=== PATIENT | female | born 1970 | race Caucasian/White ===

== ENCOUNTER 2020-06-11 11:05 | Day surgery (SDC) | payer OTHER ==
[~2020-06-11] VITALS: Ht 166.4 cm; Wt 131.1 kg
[2020-06-11] MEDS ORDERED: LACTATED RINGERS 1,000 ML IV SCH (11:39)
[2020-06-11] MEDS ORDERED: CHLORHEXIDINE 15 ML UDC MM STA (11:39)
[2020-06-11 11:41] VITALS: BP 123/75
[2020-06-11] MEDS ORDERED: SIME125C67 PO (11:49)
[2020-06-11] MEDS ORDERED: OMEP-110 PO (11:49)
[2020-06-11] MEDS ORDERED: MULT-826 PO (11:49)
[2020-06-11] MEDS ORDERED: FEXO180T72 PO (11:49)
[2020-06-11] MEDS ORDERED: GLUC-149 PO (11:49)
[2020-06-11] MEDS ORDERED: L. A1CAP3 PO (11:49)
[2020-06-11] MEDS ORDERED: PLEASE ENTER HEIGHT AND WEIGHT MC SCH (12:00)
[2020-06-11 12:31] LABS: HCG UR SG 1.015 (1.003-1.030)
[2020-06-11] MEDS ORDERED: PROPOFOL 50 ML ONE (12:45)
== END 2020-06-11 14:40 | disposition home or self-care (01) ==
LOC: OUT 11:05
PROVIDERS: ATTEND Internal Medicine Gastroenterology
DX: Z12.11 Encounter for screening for malignant neoplasm of colon (principal); K21.9 Gastro-esophageal reflux disease without esophagitis; K29.50 Unspecified chronic gastritis without bleeding; D12.2 Benign neoplasm of ascending colon; D12.5 Benign neoplasm of sigmoid colon; D12.3 Benign neoplasm of transverse colon; K64.4 Residual hemorrhoidal skin tags; G47.30 Sleep apnea, unspecified; E66.01 Morbid (severe) obesity due to excess calories; Z20.828 Contact with and (suspected) exposure to other viral communicable diseases; Z79.1 Long term (current) use of non-steroidal anti-inflammatories (NSAID); Z79.899 Other long term (current) drug therapy; Z98.84 Bariatric surgery status
CPT/HCPCS: 43239; 45385; 81025; 87635; 88305; J2704; J7120

== ENCOUNTER → 2021-01-31 | Outpatient (CLI) | payer OTHER ==
[~2021-01-31] MED LIST: FEXO180T72 PO; GLUC-149 PO; L. A1CAP3 PO; MULT-826 PO; OMEP-110 PO; SIME125C67 PO; TRAM50TA2 PO; folate PO
[2021-01-31 16:20] LABS: ALANINE AMINOTRANSFERASE 20 U/L (12-78); ALBUMIN 3.9 g/dL (3.4-5.0); ANION GAP 5 mmol/L (5-15); CHLORIDE 107 mmol/L (98-107); CREATININE 0.79 mg/dL (0.55-1.02)
[2021-01-31 16:22] LABS: ALKALINE PHOSPHATASE 79 U/L (45-117); BASOPHILS % (AUTO) 1 % (0-1); BILIRUBIN,TOTAL 0.4 mg/dL (0.2-1.0); EOSINOPHILS % (AUTO) 6 % (1-7); LYMPHOCYTES % (AUTO) 36 % (22-44); MEAN CORPUSCULAR HEMOGLOBIN 28.3 pg (27.0-34.8); MEAN CORPUSCULAR HGB CONC 32.7 g/dL (32.4-35.8); MEAN PLATELET VOLUME 10.6 fL (7.4-10.4); MONOCYTES % (AUTO) 6 % (2-9); NEUTROPHILS % (AUTO) 52 % (42-75); PLATELET COUNT 183 x10^3/uL (130-400); RED CELL DISTRIBUTION WIDTH 15.7 % (9.6-15.2); TOTAL PROTEIN 7.1 g/dL (6.4-8.2)
== END | disposition home or self-care (01) ==
LOC: STAR 15:12
PROVIDERS: ATTEND Thoracic Surgery (Cardiothoracic Vascular Surgery)
DX: Z01.818 Encounter for other preprocedural examination (principal); K44.9 Diaphragmatic hernia without obstruction or gangrene; I49.3 Ventricular premature depolarization
CPT/HCPCS: 36415; 71046; 80053; 85025; 93005

== ENCOUNTER 2021-02-07 10:47 | Inpatient (IN) | payer OTHER ==
[~2021-02-07] VITALS: Ht 165.1 cm; Wt 112.6 kg
[~2021-02-07 10:47] MED LIST changes: +HYDR15SO3 PO
--- NOTE | 2021-02-07 10:58 | NUR ---
ATTEMPT TO CALL PT FROM LOBBY TO TRIAGE. PT NIL X 1
--- NOTE | 2021-02-07 11:37 | NUR ---
FIRST CONTACT: HIATAL [facility]ERNIA REPAIR AND GASTRIC BIPASS REVISION 2 DAYS AGO, UNABLE TO TOLERATE ANY PO INTAKE SINCE SURGERY. EPIGASTRIC PRESSURE NOTED PRIOR TO EACH EMESIS. PT TO ROOM WITH STEADY GAIT. ATTACHED TO MONITORS AND POSTIONED TO COMFORT. VSS. DR. MACK TO BEDSIDE FOR EVALUATION.
--- NOTE | 2021-02-07 12:13 | NUR ---
PT RESTING IN BED. VSS. PATEL. AT BEDSIDE
--- NOTE | 2021-02-07 12:23 | NUR ---
Pt to esophogram
--- NOTE | 2021-02-07 13:41 | NUR ---
PT RESTING IN BED. VSS. NADN. UP FOR RECHECK.
--- NOTE | 2021-02-07 14:21 | NUR ---
PT UP TO BATHROOM WITH STEADY GAIT. RYLAND. JORGE.
[2021-02-07] MEDS ORDERED: LORazepam 2 MG/ML, 1ML IVPush PRN (15:00)
[2021-02-07] MEDS ORDERED: SODIUM CHLORIDE FLUSH 10ML SYR IVF PRN (15:00)
[2021-02-07] MEDS ORDERED: HYDROmorphone 2 MG/ML, 1ML IVPush PRN (15:00)
[2021-02-07] MEDS ORDERED: PANTOPRAZOLE 40 MG IV ONE (15:05)
--- NOTE | 2021-02-07 15:06 | NUR ---
YELLOW MED REQ SLIP SEND DOWN FOR IVF.
[2021-02-07] MEDS: PANTOPRAZOLE 40 MG IV IVPush SCH (15:13)
--- NOTE | 2021-02-07 15:13 | NUR ---
PT MEDICATED PER EMAR. VSS. JBN.
--- NOTE | 2021-02-07 15:54 | NUR ---
REPORT GIVEN TO MI CONNER
[2021-02-07 17:19] VITALS: BP 113/73
[2021-02-07 20:17] VITALS: BP 106/65
[2021-02-07] MEDS: POTASSIUM CHLORIDE 10 MEQ in LACTATED RINGERS 1,000 ML IV SCH (20:24)
[2021-02-07] MEDS: KETOROLAC 30 MG/1 ML IVPush PRN (21:01)
[2021-02-08 00:57] VITALS: BP 103/72
[2021-02-08 05:17] LABS: BASOPHILS % (AUTO) 1 % (0-1); EOSINOPHILS % (AUTO) 9 % (1-7); LYMPHOCYTES % (AUTO) 27 % (22-44); MEAN CORPUSCULAR HEMOGLOBIN 28.6 pg (27.0-34.8); MEAN CORPUSCULAR HGB CONC 33.8 g/dL (32.4-35.8); MEAN PLATELET VOLUME 9.7 fL (7.4-10.4); MONOCYTES % (AUTO) 7 % (2-9); NEUTROPHILS % (AUTO) 57 % (42-75); PLATELET COUNT 146 x10^3/uL (130-400); RED BLOOD COUNT 3.79 x10^6/uL (3.82-5.3); RED CELL DISTRIBUTION WIDTH 15.2 % (9.6-15.2)
[2021-02-08 05:30] LABS: ALANINE AMINOTRANSFERASE 23 U/L (12-78); ALBUMIN 2.9 g/dL (3.4-5.0); ANION GAP 4 mmol/L (5-15); CALCIUM 8.8 mg/dL (8.5-10.1); CHLORIDE 110 mmol/L (98-107); CREATININE 0.57 mg/dL (0.55-1.02)
[2021-02-08 05:34] LABS: ALKALINE PHOSPHATASE 65 U/L (45-117); BILIRUBIN,TOTAL 0.6 mg/dL (0.2-1.0); TOTAL PROTEIN 6.2 g/dL (6.4-8.2)
[2021-02-08] MEDS: POTASSIUM CHLORIDE 10 MEQ in LACTATED RINGERS 1,000 ML IV SCH ×2 (06:25→16:59)
[2021-02-08] MEDS: PANTOPRAZOLE 40 MG IV IVPush SCH (09:13)
[2021-02-08 09:15] VITALS: BP 113/62
[2021-02-08] MEDS: KETOROLAC 30 MG/1 ML IVPush PRN ×2 (11:28→20:12)
[2021-02-08 13:30] VITALS: BP 97/62
[2021-02-08 20:31] VITALS: BP 108/59
[2021-02-09] MEDS: POTASSIUM CHLORIDE 10 MEQ in LACTATED RINGERS 1,000 ML IV SCH ×2 (02:40→14:02)
[2021-02-09] MEDS: KETOROLAC 30 MG/1 ML IVPush PRN (02:40)
[2021-02-09 02:42] VITALS: BP 109/72
[2021-02-09 06:32] VITALS: BP 109/58
[2021-02-09] MEDS: PANTOPRAZOLE 40 MG IV IVPush SCH (07:49)
[2021-02-09 12:56] VITALS: BP 104/67
[2021-02-09 14:48] VITALS: BP 108/60
== END 2021-02-09 16:05 | disposition home or self-care (01) | DRG 394 ==
LOC: ED 11:16 → EDIP 14:31 → SUATTDRO 14:42 → 4NE 16:44
PROVIDERS: ADMIT Internal Medicine; ATTEND Internal Medicine
DX: K91.89 Other postprocedural complications and disorders of digestive system (principal); Z68.41 Body mass index [BMI] 40.0-44.9, adult; K44.9 Diaphragmatic hernia without obstruction or gangrene; K22.2 Esophageal obstruction; Z90.49 Acquired absence of other specified parts of digestive tract; Z98.891 History of uterine scar from previous surgery; Z98.51 Tubal ligation status; Z79.899 Other long term (current) drug therapy; Z79.891 Long term (current) use of opiate analgesic; Z79.01 Long term (current) use of anticoagulants; Z98.84 Bariatric surgery status; Z88.0 Allergy status to penicillin; Z88.5 Allergy status to narcotic agent; Z88.8 Allergy status to other drugs, medicaments and biological substances; Z83.6 Family history of other diseases of the respiratory system; Z82.49 Family history of ischemic heart disease and other diseases of the circulatory system; Z80.3 Family history of malignant neoplasm of breast; E66.01 Morbid (severe) obesity due to excess calories
CPT/HCPCS: 36415; 74220; 80053; 85025; 93005; G0378; J1885; J3480; C9113; J7120